=== PATIENT | male | born 1950 | race Caucasian/White ===

== ENCOUNTER 2017-03-31 12:08 | Inpatient (IN) | payer MEDICARE, BC ==
[~2017-03-31] VITALS: Ht 172.7 cm; Wt 85.9 kg
[2017-03-31 14:20] VITALS: BP 134/65
[2017-03-31] MEDS ORDERED: DEXTROSE 50% 25 GM / 50ML DISP.SYRIN. IV PRN (14:45)
[2017-03-31] MEDS ORDERED: ACETAMINOPHEN 325 MG TABLET. PO PRN (14:45)
[2017-03-31 15:08] LABS: BASO % 1 % (0-3); EOS % 4 % (0-3); HEMATOCRIT 40.7 % (39.0-53.0); HEMOGLOBIN 14.1 g/dL (13.0-17.5); LYMPH % 15 % (24-48); MEAN CORPUSCULAR HEMOGLOBIN 29 pg (25-35); MEAN CORPUSCULAR HGB CONC 35 g/dL (31-37); MEAN CORPUSCULAR VOLUME 85 fL (79-100); MONO % 9 % (0-9); NEUT % 72 % (31-73); PLATELET COUNT 174 x10^3/uL (140-400); RED BLOOD COUNT 4.78 x10^6/uL (4.30-5.70); RED CELL DISTRIBUTION WIDTH 13.6 % (11.5-14.5)
[2017-03-31 15:17] LABS: INR 1.1 (0.8-1.1); PROTHROMBIN TIME PATIENT 13.3 SEC (11.7-14.0)
[2017-03-31 15:23] LABS: ALBUMIN 3.3 g/dL (3.4-5.0); CALCIUM 8.7 mg/dL (8.5-10.1); CREATININE 0.7 mg/dL (0.7-1.3); GFR 112.1; POTASSIUM 3.5 mmol/L (3.5-5.1); TOTAL BILIRUBIN 0.5 mg/dL (0.2-1.0); TOTAL PROTEIN 6.5 g/dL (6.4-8.2)
[2017-03-31] MEDS: LISINOPRIL 20 MG TABLET PO SCH (15:30)
[2017-03-31] MEDS: ASPIRIN ENTERIC COATED 81 MG TABLET.DR. PO SCH (15:30)
[2017-03-31] MEDS: PANTOPRAZOLE 40 MG TABLET.DR. PO SCH (15:30)
[2017-03-31] MEDS: METOPROLOL SUCC 24HR ER 50 MG TAB.ER.24H. PO SCH (15:30)
[2017-03-31] MEDS: HYDROmorphone 2 MG/ML VIAL IV PRN ×2 (16:42→23:50)
[2017-03-31] MEDS: GLIMEPIRIDE 2 MG TABLET. PO SCH (17:00)
[2017-03-31] MEDS: INSULIN ASPART 300 UNITS/3 ML INSULN.PEN SQ SCH (17:00)
[2017-03-31 17:23] VITALS: BP 134/65
[2017-03-31 19:00] VITALS: BP 165/67
[2017-03-31] MEDS ORDERED: CANA300T PO (19:48)
[2017-03-31] MEDS: ATORVASTATIN CALCIUM 40 MG TABLET. PO SCH (20:39)
[2017-03-31] MEDS: TAMSULOSIN 0.4 MG CAP.ER.24H. PO SCH (20:39)
[2017-03-31] MEDS ORDERED: ONDANSETRON PF 4 MG/2 ML VIAL. IV PRN (20:45)
[2017-03-31] MEDS: INSULIN DETEMIR 300 UNITS/3 ML INSULN.PEN. SQ SCH (20:49)
[2017-03-31 23:00] VITALS: BP 154/76
[2017-04-01] MEDS: HYDROmorphone 2 MG/ML VIAL IV PRN ×3 (00:45→11:40)
[2017-04-01 03:00] VITALS: BP_SYST 159; BP_SYST 171; BP_DIAS 72; BP_DIAS 73
[2017-04-01 07:00] VITALS: BP 159/81
[2017-04-01] MEDS: GLIMEPIRIDE 2 MG TABLET. PO SCH ×2 (08:17→16:59)
[2017-04-01] MEDS: METOPROLOL SUCC 24HR ER 50 MG TAB.ER.24H. PO SCH (08:18)
[2017-04-01] MEDS: ASPIRIN ENTERIC COATED 81 MG TABLET.DR. PO SCH (08:18)
[2017-04-01] MEDS: NON FORMULARY ITEM (Canagliflozin (Invokana) 300 MG) PO SCH (08:18)
[2017-04-01] MEDS: LISINOPRIL 20 MG TABLET PO SCH (08:18)
[2017-04-01] MEDS: PANTOPRAZOLE 40 MG TABLET.DR. PO SCH (08:18)
[2017-04-01] MEDS: INSULIN ASPART 300 UNITS/3 ML INSULN.PEN SQ SCH ×3 (08:22→16:44)
--- NOTE | 2017-04-01 10:20 | HP ---
ADMIT DATE: 04/01/2017 HISTORY OF PRESENT ILLNESS: The patient is a 67-year-old male patient who was admitted to [facility] on 03/29/2017 with a complaint of severe left flank pain that is radiating to his left groin and left testicle. He denied any dysuria, denied any hematuria or frequency. He apparently has multiple episodes of nephrolithiasis and he described that his presentation is similar to previous attacks of renal stones. However, he has had multiple imaging modalities, none of them really showed any evidence of stones whether in the kidneys or in the ureters. There is no evidence of hydronephrosis. His urinalysis was unremarkable with no evidence of hematuria and ultrasound again showed no evidence of any hydronephrosis. I did speak with Dr. Mayda Molina, the urologist project production engineer at [facility], and she did not feel that there is any reason for him to be transferred. CT scan of the abdomen, however, showed that he has compression deformity at L2 that might have been the cause of this pain and therefore the patient was transferred to [facility] to arrange for an MRI of the lumbar spine to consult either interventional radiologist or neurosurgeon if there is any evidence of compression fracture or radiculopathy. PAST MEDICAL HISTORY: Significant for multiple episodes of nephrolithiasis, apparently has also type 2 diabetes, bronchial asthma, coronary artery disease status post percutaneous coronary intervention with stent deployment x 4, hyperlipidemia, hypertension, gastric ulcers, benign prostatic hypertrophy. PAST SURGICAL HISTORY: Significant for coronary artery disease, stent deployment. He has had also cystoscopy, retrograde pyelography and retrieval of stones, tonsillectomy, lipoma resection, esophagogastroduodenoscopy and colonoscopy. ALLERGIES: He has no known drug allergies. MEDICATIONS: He is currently on aspirin 81 mg once a day, atorvastatin 40 mg at bedtime, Invokana 300 mg once a day, glimepiride 4 mg twice a day. He is also on Lantus 30 units at bedtime, Victoza 1.8 mg subcutaneously daily, lisinopril 20 mg once a day, metformin 1000 mg twice a day, metoprolol succinate 50 mg once a day and omeprazole 40 mg once a day. He was also transferred to continue on IV hydromorphone 2 mg IV every 3 hours as well as ondansetron 4 mg IV every 4 hours for nausea and vomiting, and Flomax 0.4 mg at bedtime. FAMILY HISTORY: He has 2 brothers who are younger. One sister older has type 2 diabetes. His father at age of 83 because of bronchial asthma, chronic obstructive pulmonary disease and cancer. Mother at the age of 94 because of cerebrovascular accident. SOCIAL HISTORY: He is , has a son and a daughter. He never smoked, does not drink alcohol or use recreational drugs. 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 REVIEW OF SYSTEMS: The patient denied any blurring of vision, cataract, glaucoma or macular degeneration. Denied any earache, tinnitus or sensorineural deafness. Denied any nosebleeds, stuffy nose or postnasal drip. Denied any sore throat, sore tongue, toothache, hoarseness of voice or difficulty swallowing. Denied any nausea, vomiting, diarrhea or constipation. Denied any hematemesis, melena or hematochezia. Denied any dysuria, frequency or hematuria. He did complain of nocturia, postvoid dribbling, hesitancy and urgency as well as nocturia. He denied any chest pain, shortness of breath, orthopnea or paroxysmal nocturnal dyspnea. Denied any cough, phlegm or hemoptysis. The only complaint is pain that started in left flank area, radiating down to the left groin and particularly his left testicle. PHYSICAL EXAMINATION: GENERAL: On examining him this morning, he looked well and was clearly in no apparent respiratory distress, pale. No jaundice, cyanosis, or thyromegaly. No jugular venous distention. No limb edema. VITAL SIGNS: His heart rate was 73, blood pressure was 159/81, temperature was 98.4, respiratory rate was 18 and oxygen saturation was 95%. HEAD, EYES, EARS, NOSE, THROAT: Showed normocephalic, atraumatic. NECK: Supple. HEART: Showed normal first and second heart sounds with no gallop, rub or murmur. CHEST: Clear to auscultation. No crepitation or rhonchi. ABDOMEN: Distended, soft, nontender. No guarding or rigidity. No organomegaly. All hernial orifices intact. Bowel sounds normal. NEUROLOGIC: He was awake, alert, responding appropriately. Cranial nerves intact. He moves extremities without difficulty. LABORATORY DATA: Showed that his white cell count was 7000, hemoglobin 14, hematocrit 41, MCV 85, and platelet count of 174,000. His prothrombin time was 15.3, INR of 1.1, aPTT was 23. His chemistry showed a serum sodium 141, potassium 3.5, chloride 103, bicarbonate 28, anion gap of 10, BUN 14, creatinine 0.7, estimated GFR was 112 mL per minute. His glucose was 122, calcium was 8.7. Total bilirubin, AST, ALT, alkaline phosphatase were normal. Total protein was 6.5, albumin 3.3. ASSESSMENT AND PLAN: In summary, this is a 67-year-old male patient with intractable low back pain, mostly in the flank area radiating to the left groin and left testicle. The CT scan of the abdomen and pelvis without contrast showed no renal or ureteral calculi; however, there is subacute or chronic mild severe plate compression deformity at L2 that could be the cause of his pain. He has moderate right and small left inguinal hernia containing only fat. Again, the abdominal ultrasound showed no evidence of hydronephrosis and CT angio showed no acute abnormalities seen. All intra-abdominal arteries are patent. The patient is scheduled for an MRI and then according to the finding we will consult either the interventional radiologist or neurosurgical team if he requires any surgical intervention. FIDENCIO BLANCAS MD DR: PIETER/shaka JOB#: [id number] / [id number]
[2017-04-01 11:38] VITALS: BP 145/76
--- NOTE | 2017-04-01 13:24 | RAD ---
EXAM: Lumbar spine MRI without contrast. HISTORY: Pain. TECHNIQUE: Multiplanar, multisequence magnetic resonance imaging of the lumbar spine was performed without contrast. COMPARISON: None. FINDINGS: There is minimal lumbar scoliosis. There is no significant listhesis. There is a mild chronic anterior wedge compression fracture of L2. The remainder of the vertebral bodies are normal in height. There is endplate remodeling at multiple levels. There is disc desiccation at multiple levels. The conus terminates at L1. There are few tiny hemangiomas. There are small bilateral renal cysts. At T10-T11, there is a right foraminal disc protrusion. There is no stenosis. At T11-T12, there is no stenosis. At T12-L1, there is a shallow inferior disc extrusion superimposed on a disc bulge and endplate remodeling. There is no stenosis. At L1-L2, there is a shallow posterior central to right foraminal disc protrusion and annular tear superimposed on a disc bulge and endplate remodeling. There is no stenosis. At L2-L3, there is a disc bulge and endplate remodeling. There is no stenosis. At L3-L4, there is a disc bulge and endplate remodeling. There is no stenosis. At L4-L5, there is a shallow broad-based posterior central disc protrusion and annular tear superimposed on a disc bulge and endplate remodeling. There is mild facet arthropathy. There is mild central canal stenosis with abutment of the traversing left L5 nerve root. At L5-S1, there is a posterior central disc protrusion and annular tear superimposed on a disc bulge and endplate remodeling. There is mild facet arthropathy. There is minimal left foraminal stenosis. There is mild central canal stenosis. IMPRESSION: 1. Multilevel degenerative change within the lower thoracic and lumbar spine, described in detail above. 2. Mild chronic wedge compression deformity of L2. Electronically signed by: Elana Strange MD (04/01/2017 1:21 PM) [facility]
[2017-04-01 15:00] VITALS: BP 162/77
[2017-04-01 19:00] VITALS: BP 150/66
[2017-04-01] MEDS: ATORVASTATIN CALCIUM 40 MG TABLET. PO SCH (21:53)
[2017-04-01] MEDS: TAMSULOSIN 0.4 MG CAP.ER.24H. PO SCH (21:53)
[2017-04-01] MEDS: INSULIN DETEMIR 300 UNITS/3 ML INSULN.PEN. SQ SCH (21:58)
[2017-04-01 23:07] VITALS: BP 134/64
[2017-04-02 03:27] VITALS: BP 116/67
[2017-04-02 07:00] VITALS: BP 91/48
[2017-04-02] MEDS: INSULIN ASPART 300 UNITS/3 ML INSULN.PEN SQ SCH ×2 (08:00→11:46)
[2017-04-02] MEDS: LISINOPRIL 20 MG TABLET PO SCH (08:23)
[2017-04-02] MEDS: METOPROLOL SUCC 24HR ER 50 MG TAB.ER.24H. PO SCH (08:24)
[2017-04-02] MEDS: PANTOPRAZOLE 40 MG TABLET.DR. PO SCH (08:28)
[2017-04-02] MEDS: ASPIRIN ENTERIC COATED 81 MG TABLET.DR. PO SCH (08:29)
[2017-04-02] MEDS: NON FORMULARY ITEM (Canagliflozin (Invokana) 300 MG) PO SCH (08:29)
[2017-04-02] MEDS: GLIMEPIRIDE 2 MG TABLET. PO SCH (08:29)
[2017-04-02] MEDS ORDERED: INSU100V13 SQ (11:20)
[2017-04-02] MEDS ORDERED: GLIM4TAB2 PO (11:20)
[2017-04-02] MEDS ORDERED: ATOR40TA PO (11:20)
[2017-04-02] MEDS ORDERED: ASPI-612 PO (11:20)
[2017-04-02] MEDS ORDERED: TAMS0.4C97 PO (11:20)
[2017-04-02] MEDS ORDERED: METO-269 PO (11:20)
[2017-04-02] MEDS ORDERED: LISI-334 PO (11:20)
[2017-04-02 11:37] VITALS: BP 103/56
--- NOTE | 2017-04-02 12:44 | PDOC ---
Provider Note Provider Note patient seen reports that the severe left groin pain has resolved he reported severe left groin pain that felt similar to when he previously had nephrolithiasis but denies having left leg pain L2 compression fx appears chronic left sided lateral recess narrowing at L4-5 but no radicular signs or symptoms at this time F/u urology F/u with me as OP as needed CRISTO ZHAO MD Apr 02, 2017 12:44
--- NOTE | 2017-04-12 12:43 | DS ---
DATE OF DISCHARGE: 04/02/2017 HOSPITAL COURSE: The patient is a 67-year-old male patient who was originally seen at [facility] with a complaint of severe left flank pain that he stated is radiating to his left groin and left testicle. He denied, however, any dysuria, denied any hematuria or frequency. He apparently has multiple episodes of nephrolithiasis, described that his presentation is similar to previous attacks of renal stones; however, he has multiple imaging modalities, none of them really showed any evidence of stones, whether in the kidneys or in the ureters. There is no evidence of hydronephrosis. Urinalysis was unremarkable with no evidence of any hematuria, and ultrasound again showed no evidence of any hydronephrosis. I did speak with Dr. Carlene Barajas, the urologist vice president of contracts at [facility]. He did not feel that there is any reason for him to be transferred. CT scan of the abdomen, however, showed that he has compression deformity at L2 that might have been the cause of his disk pain, and therefore, the patient was transferred to [facility]. An MRI was done of his lumbar spine and to consult the neurosurgical team. His MRI apparently showed that he has an old L2 compression fracture. The patient was treated with IV hydromorphone, and all of a sudden, his pain has completely subsided. He was seen by Dr. Chahal who basically did not recommend any intervention and recommended that the patient should follow with him as an outpatient as he has left-sided lateral recess narrowing at L4-L5, but no radicular signs or symptoms at this time. He recommended that he should see him as an outpatient in his office. As the patient's pain has completely resolved, the patient was discharged home, to follow with his primary care physician. PHYSICAL EXAMINATION: GENERAL: On the day of discharge, he looked well and was clearly in no apparent respiratory distress, pale, but no jaundice, cyanosis, or thyromegaly. No jugular venous distention. No limb edema. VITAL SIGNS: His heart rate was 77, blood pressure was 103/56, temperature was 97, respiratory rate was 20 and oxygen saturation was 94%. The rest of clinical examination is unremarkable. The patient was pain free. He was ambulating without assistance or assistive devices. LABORATORY DATA: Unremarkable. DISCHARGE MEDICATIONS: The patient was discharged home, to continue on his aspirin 81 mg once a day, atorvastatin calcium 40 mg at bedtime, glimepiride 4 mg twice a day, Levemir insulin 30 units at bedtime, lisinopril 20 mg once a day, metoprolol succinate for Toprol-XL 50 mg once a day, Flomax 0.4 mg at bedtime as well as Invokana 300 mg daily. FINAL DISCHARGE DIAGNOSES: Left flank pain, severe, that has finally subsided spontaneously without any intervention. There was no evidence of any nephrolithiasis, and the L2 compression fracture was chronic. Other medical problems included type 2 diabetes, multiple episodes of nephrolithiasis, bronchial asthma, coronary artery disease, status post percutaneous coronary intervention with stent deployment x 4, hyperlipidemia, hypertension, gastric ulcers and benign prostatic hypertrophy. FIDENCIO BLANCAS MD DR: PIETER/shaka JOB#: [id number] / [id number]
== END 2017-04-02 14:00 | disposition home or self-care (01) | DRG 392 ==
LOC: 4 NORTH 14:15
PROVIDERS: ADMIT Internal Medicine; ATTEND Internal Medicine
DX: R10.9 Unspecified abdominal pain (principal); E44.0 Moderate protein-calorie malnutrition; M48.56XA Collapsed vertebra, not elsewhere classified, lumbar region, initial encounter for fracture; E11.9 Type 2 diabetes mellitus without complications; E78.5 Hyperlipidemia, unspecified; I10 Essential (primary) hypertension; I25.10 Atherosclerotic heart disease of native coronary artery without angina pectoris; K40.90 Unilateral inguinal hernia, without obstruction or gangrene, not specified as recurrent; J45.909 Unspecified asthma, uncomplicated; N20.0 Calculus of kidney; Z82.3 Family history of stroke; Z82.5 Family history of asthma and other chronic lower respiratory diseases; Z83.3 Family history of diabetes mellitus; Z87.11 Personal history of peptic ulcer disease; Z87.442 Personal history of urinary calculi; Z98.61 Coronary angioplasty status; Z85.46 Personal history of malignant neoplasm of prostate
CPT/HCPCS: 36415; 72148; 80053; 82962; 85025; 85610; 85730; J1170; J1815

== ENCOUNTER 2021-09-29 13:25 | Inpatient (IN) | payer MEDICARE, BC ==
[~2021-09-29] VITALS: Ht 170.2 cm; Wt 87.6 kg
[2021-09-29] VITALS (17 sets, daily range): BP systolic 85–149; BP diastolic 41–78
[~2021-09-29 13:25] MED LIST: ASPI-886 PO; ATOR40TA PO; CANA300T PO; GLIM4TAB8 PO; INSU100V13 SQ; LISI20TA18 PO; METO-269 PO; MIDAZOLAM HCL/PF 2 MG/2 ML VIAL. ONE; TAMS0.4C97 PO; fentaNYL PF VIAL 100 MCG/2 ML VIAL ONE
[2021-09-29] MEDS ORDERED: BIVALIRUDIN 250 MG VIAL. IVP ONE (13:33)
[2021-09-29] MEDS ORDERED: MIDAZOLAM HCL/PF 2 MG/2 ML VIAL. ONE (13:35)
[2021-09-29] MEDS ORDERED: IOHEXOL 300 MG/ML 50 ML VIAL. IART ONE (13:45)
[2021-09-29] MEDS ORDERED: fentaNYL PF VIAL 100 MCG/2 ML VIAL IV ONE (13:45)
[2021-09-29] MEDS ORDERED: LIDOCAINE 1% Multi-Dose 20 ML VIAL. INJ ONE (13:45)
[2021-09-29] MEDS ORDERED: MIDAZOLAM HCL/PF 2 MG/2 ML VIAL. IV ONE (13:45)
[2021-09-29] MEDS ORDERED: CONTRAST GIVEN. MC PRN (14:00)
[2021-09-29] MEDS ORDERED: IOHEXOL 300 MG/ML 50 ML VIAL. ONE (14:08)
--- NOTE | 2021-09-29 14:11 | PDOC ---
MODERATE SEDATION ASSESSMENT RISKS/ALTERNATIVES Risks/Alternatives Risks and alternatives of this type of sedation and procedure discussed with: RISK/ALTERNATIVES: Patient H & P ON CHART H & P H & P on chart and reviewed for co-morbid conditions and appropriate labs. H&P ON CHART: Yes STATUS PREG STATUS ASSESSED: N/A MEDS/ALLERGIES REVIEWED Meds/Allergies Reviewed Medications and Allergies including time and route of recently administered narcotics and sedatives. MEDS/ALLERGIES REVIEWED: Yes ASA RATING ASA RATING: II AIRWAY ASSESSMENT Airway Assessment Airway patency, oral function limitations, presence of caps, crowns, dentures, partials, and ability to extend neck assessed. AIRWAY ASSESSMENT: Yes MALLAMPATI SCORE MALLAMPATI SCORE: II PRE-SEDATION ASSESSMENT PRE-SEDATION ASSESSMENT: Yes SUNITA FRANCO MD September 29, 2021 14:11
--- NOTE | 2021-09-29 14:12 | PDOC2 ---
CONSULT Date of Consult Date of Consult DATE: 09/29/21 TIME: 14:11 Reason for Consult Reason for Consult: Acute coronary syndrome Referring Physician Referring Physician: Dr. Chowdary Identification/Chief Complaint Chief Complaint Dizziness Source Source: Chart review, Patient History of Present Illness Reason for Visit: 71-year-old male with extensive history of coronary artery disease s/p multiple PCI/stents placement, usually followed at [facility], initially presented to [facility] ED with dizziness, lightheadedness, blurred vision, diaphoresis and generalized weakness. His blood pressure apparently was 50s/30s when checked by his . He was found to be hypotensive in the ED as well. EKG showed subtle ST elevations in inferior leads, early repolarization abnormality versus acute coronary syndrome and hence code STEMI was activated and patient was transferred to [facility] for further management. He denied any chest pain as such. He also denied any orthopnea/PND, palpitations or syncope. He claims compliance with his medications. Past Medical History Past Medical History Coronary artery disease s/p multiple PCI/stents placement in 2010, 2017 and most recently in April 2021 at [facility]. Hypertension Hyperlipidemia Diabetes mellitus type 2 GERD Nephrolithiasis Past Surgical History Past Surgical History Lipoma removal Family History Family History Not contributory secondary to his known history of coronary artery disease Social History Social History Patient denied any smoking, alcohol or drug use Current Medications Current Medications Current Medications Fentanyl Citrate (Fentanyl 2ml Vial) 100 mcg STK-MED ONCE .ROUTE ; Start 09/29/21 at 13:13; Stop 09/29/21 at 13:14; Status DC Midazolam HCl (Versed) 2 mg STK-MED ONCE .ROUTE ; Start 09/29/21 at 13:13; Stop 09/29/21 at 13:14; Status DC Bivalirudin (Angiomax) 250 mg STK-MED ONCE IVP ; Start 09/29/21 at 13:33; Stop 09/29/21 at 13:33; Status DC Midazolam HCl (Versed) 2 mg STK-MED ONCE .ROUTE ; Start 09/29/21 at 13:35; Stop 09/29/21 at 13:35; Status DC Heparin Sodium/ Sodium Chloride (HEPARIN for ARTERIAL LINE FLUSH) 1,000 unit 1X ONCE IART Last administered on 09/29/21at 13:45; Start 09/29/21 at 13:45; Stop 09/29/21 at 13:49; Status DC Midazolam HCl (Versed) 2 mg 1X ONCE IV Last administered on 09/29/21at 13:29; Start 09/29/21 at 13:45; Stop 09/29/21 at 13:49; Status DC Fentanyl Citrate (Fentanyl 2ml Vial) 50 mcg 1X ONCE IV Last administered on 09/29/21at 13:29; Start 09/29/21 at 13:45; Stop 09/29/21 at 13:49; Status DC Iohexol (Omnipaque 300 Mg/ml) 50 ml 1X ONCE IART Last administered on 09/29/21at 13:45; Start 09/29/21 at 13:45; Stop 09/29/21 at 13:49; Status DC Lidocaine HCl (Lidocaine 1% 20ml Vial) 20 ml 1X ONCE INJ Last administered on 09/29/21at 13:45; Start 09/29/21 at 13:45; Stop 09/29/21 at 13:49; Status DC Info (CONTRAST GIVEN -- Rx MONITORING) 1 each PRN DAILY PRN MC SEE COMMENTS; Start 09/29/21 at 14:00; Stop 10/01/21 at 13:59 Heparin Sodium/ Sodium Chloride 500 ml @ As Directed STK-MED ONCE .ROUTE ; Start 09/29/21 at 14:08; Stop 09/29/21 at 14:08; Status DC Iohexol (Omnipaque 300 Mg/ml) 50 ml STK-MED ONCE .ROUTE ; Start 09/29/21 at 14:08; Stop 09/29/21 at 14:08; Status DC Active Scripts Active Flomax (Tamsulosin Hcl) 0.4 Mg Cap.er.24h 1 Cap PO DAILY Toprol Xl (Metoprolol Succinate) 50 Mg Tab.er.24h 1 Tab PO DAILY Lisinopril 20 Mg Tablet 1 Tab PO DAILY Levemir (Insulin Detemir) 100 Unit/1 Ml Vial 30 Unit SQ QHS PRN Glimepiride 4 Mg Tablet 1 Tab PO BID Lipitor (Atorvastatin Calcium) 40 Mg Tablet 1 Tab PO QHS Aspirin Ec (Aspirin) 81 Mg Tablet. 1 Tab PO DAILY Reported Invokana (Canagliflozin) 300 Mg Tablet 300 Mg PO DAILY Allergies Allergies: Coded Allergies: No Known Drug Allergies (Unverified , 03/31/17) ROS General: YES: Fatigue, Malaise PSYCHOLOGICAL ROS: No: Hallucinations Eyes: No Loss of vision HEENT: No: Epistaxis Respiratory: No: Hemoptysis Cardiovascular: No Chest Pain Gastrointestinal: No Vomiting, No Diarrhea Genitourinary: No Hematuria Neurological: Yes Dizziness, Yes Visual Changes; No Seizures Skin: No Rash Physical Exam General: Alert, Oriented X3 HEENT: Atraumatic Lungs: Clear to auscultation Heart: Regular rate Abdomen: Soft Extremities: No edema Neuro: Normal speech Psych/Mental Status: Mental status NL Vitals VITALS Vital Signs Date Time Temp Pulse Resp B/P (MAP) Pulse Ox O2 Delivery O2 Flow Rate FiO2 09/29/21 13:58 58 17 96 Nasal Cannula 3.0 Assessment/Plan Assessment/Plan 1. Possible acute coronary syndrome in a patient with extensive history of coronary artery disease with multiple stents placement in the past, most recently in April 2021. Due to his EKG changes, we proceeded with emergent cardiac catheterization that did not show any lesions needing intervention. The previously placed stents in LAD and LCx were widely patent. The diagonal branch showed chronic total occlusion within the stent, described in prior cardiac cath eterization according to his family. He is currently chest pain-free. Check 2D echo to assess LV systolic function. We will obtain records from [facility]. Continue current secondary prevention measures. 2. Hypotension: Probably secondary to hypovolemia. This improved after he received intravenous fluid boluses in the ED. He is presently off dopamine infusion that was started on his arrival. Defer further work-up to IM. 3. Hyperlipidemia: Continue statin therapy. 4. Diabetes mellitus type 2 with hyperglycemia, probably contributing to his hypovolemia. Treat per IM. 5. Acute renal insufficiency secondary to hypovolemia. Continue intravenous fluids. Thank you for your consultation. Total critical care time spent evaluating and managing patient 45 minutes. SUNITA FRANCO MD September 29, 2021 14:11
--- NOTE | 2021-09-29 14:21 | CARD ---
MR#: [id number] Date of Study: 09/29/2021 Ordering Physician: SUNITA DURAN, Referring Physician: SUNITA DURAN, Tech: RT Mary(R) APPROVED REPORT Technologist: RT Mary(R) Nurse: Víctor Nelson RN Procedure(s) performed: Left heart catheterization and selective coronary angiography Fluoro time: 2.7 min Dose: 54.6 gycm2 contrast: 42 cc omni 300 moderate sedation: 29 minutes INDICATION The indication(s) include : Unstable angina. [facility] Clinical Frailty Scale [facility] Clinical Frailty Scale: Mildly Frail Heart Failure Heart Failure: No CASE TECHNIQUE IV conscious sedation was used throughout procedure with appropriate monitoring and was performed in the presence of a registered nurse who was an independent trained observer other than the physician p erforming the procedure. During this case, Fluoroscopy and low osmolar contrast were used for imaging . Specimen(s) Removed: No Estimated Blood loss: 15 cc's. PROCEDURE NARRATIVE After explaining the risk, benefits and alternative options, informed consent was obtained for patien t. Patient was brought to the cardiac Machine [facility] and his right groin was prepped and draped in the usu al fashion. 20 cc of 2% lidocaine was infiltrated into the skin and subcutaneous tissues for local a nesthesia. Arterial access was obtained in the right common femoral artery and a 6 Wolof sheath was inserted. 6 Wolof JL 4 and 6 Wolof JR4 catheters were used to perform selective angiography of th e left and right coronary arteries. LVEDP and transaortic gradients were measured. Patient tolerate d the procedure well. Hemostasis was achieved using Mynx closure device. There were no immediate co mplications. FINDINGS 1. Hemodynamics: Left ventricular end-diastolic pressure 18 mmHg. No pullback gradient across aorti c valve. 2. Coronary angiography: a. The left main coronary artery arose from the left sinus of Valsalva, gave rise to the left anteri or descending and left circumflex arteries and did not show any significant stenosis. b. The left anterior descending artery showed widely patent previously placed stents in the midsegme nt and also the mid to distal segment. The first diagonal branch showed chronic total occlusion with in the stent in the proximal segment. Per patient's family, this was noted on last cardiac catheteri zation. c. The left circumflex artery showed widely patent previously placed stent in the proximal to mid se gment. The first obtuse marginal branch showed patent stent in the proximal segment. d. The right coronary artery arose from the right sinus of Valsalva and did not show any significant stenosis. Conclusion Patent previously placed stents in left anterior descending artery, left circumflex artery and the fi rst obtuse marginal branch. The diagonal branch of LAD showed chronic total occlusion within the aust[place] nt in the proximal segment, described in prior cardiac catheterization. No lesions needing intervent ion were noted. Recommendations Medical Therapy Signed by : Sunita Duran, Electronically Approved : 09/29/2021 14:20:28
--- NOTE | 2021-09-29 15:39 | PDOC1 ---
History and Physical Date of Admission Date of Admission DATE: 09/29/21 TIME: 15:21 Identification/Chief Complaint Chief Complaint Pre-syncope, low blood pressure, abnormal EKG Source Source: Patient History of Present Illness History of Present Illness Mr Bowling is a 71 yo male w/ PMHx coronary artery disease s/p multiple PCI/stents placement (he says 4 stents 2010 and 4 stents 2018), DM2, HLD, HTN, carotid disease s/p bilateral carotid endarterectomy who presented to [facility] ED with dizziness, lightheadedness, blurred vision, diaphoresis and generalized weakness. Blood pressure 65/24 pulse 67 respirations 16 pulse oximetry 96% on room air temperature 98 F Labs reveal WBC 6.2, Hb 12.8, platelets 184, INR 1, PTT 21, NA 138, K5, BUN 32, CR 1.6, glucose 251, calcium 9, phosphorus 3.2, magnesium 1.1 bilirubin 0.7, AST 23, ALT 24, alkaline phosphatase 74.5, NT proBNP 423, troponin high-sensitivity is [address] head abnormalities. Chest radiograph no acute abnormalities EKG with slight ST elevations in inferior leads with T wave inversion in aVL. Given IVF bolus and started on dopamine and with concern for early STEMI was transferred to [facility] for urgent cardiac evaluation and catheterization. In [place] found with patent previously placed stents in left anterior descending artery, left circumflex artery and the first obtuse marginal branch. The diagonal branch of LAD showed chronic total occlusion within the stent. No interventions performed. Seen in ICU post cardiac cath and he tells me this morning awoke with a slight headache. He says he went to [place] for cardiac rehab and came outside When he went outside he noticed everything was very bright and blurry. Patient states he felt unwell while driving, went to have breakfast but did not get any better and his checked his blood pressure and found it to be 50/30, so came to ED in the first place. He then relates above prior cardiac history and notes April 2021 while being evaluated for consideration for recommended CABG he was found with 90 occlusion of his right carotid artery and >70% occlusion of left with prior TIA and subsequently underwent bilateral carotid endarterectomies, he has been going to cardiac rehab since and notes that he frequently gets lightheaded after rehab and has light sensitivity. Still hypotensive 85/41 with HR 57bpm in ICU. Past Medical History Cardiovascular: CAD, CHF, HTN, Hyperlipidemia CENTRAL NERVOUS SYSTEM: TIA Renal/: Benign prostatic enlarg. Endocrine: Diabetes Past Surgical History Past Surgical History 2020 - bilateral carotid endarterectomy Family History Family History: Coronary Artery Disease Social History Smoke: No ALCOHOL: none Drugs: None Current Medications Current Medications Current Medications Fentanyl Citrate (Fentanyl 2ml Vial) 100 mcg STK-MED ONCE .ROUTE ; Start 09/29/21 at 13:13; Stop 09/29/21 at 13:14; Status DC Midazolam HCl (Versed) 2 mg STK-MED ONCE .ROUTE ; Start 09/29/21 at 13:13; Stop 09/29/21 at 13:14; Status DC Bivalirudin (Angiomax) 250 mg STK-MED ONCE IVP ; Start 09/29/21 at 13:33; Stop 09/29/21 at 13:33; Status DC Midazolam HCl (Versed) 2 mg STK-MED ONCE .ROUTE ; Start 09/29/21 at 13:35; Stop 09/29/21 at 13:35; Status DC Heparin Sodium/ Sodium Chloride (HEPARIN for ARTERIAL LINE FLUSH) 1,000 unit 1X ONCE IART Last administered on 09/29/21at 13:45; Start 09/29/21 at 13:45; Stop 09/29/21 at 13:49; Status DC Midazolam HCl (Versed) 2 mg 1X ONCE IV Last administered on 09/29/21at 13:29; Start 09/29/21 at 13:45; Stop 09/29/21 at 13:49; Status DC Fentanyl Citrate (Fentanyl 2ml Vial) 50 mcg 1X ONCE IV Last administered on 09/29/21at 13:29; Start 09/29/21 at 13:45; Stop 09/29/21 at 13:49; Status DC Iohexol (Omnipaque 300 Mg/ml) 50 ml 1X ONCE IART Last administered on 09/29/21at 13:45; Start 09/29/21 at 13:45; Stop 09/29/21 at 13:49; Status DC Lidocaine HCl (Lidocaine 1% 20ml Vial) 20 ml 1X ONCE INJ Last administered on 09/29/21at 13:45; Start 09/29/21 at 13:45; Stop 09/29/21 at 13:49; Status DC Info (CONTRAST GIVEN -- Rx MONITORING) 1 each PRN DAILY PRN MC SEE COMMENTS; Start 09/29/21 at 14:00; Stop 10/01/21 at 13:59 Heparin Sodium/ Sodium Chloride 500 ml @ As Directed STK-MED ONCE .ROUTE ; Start 09/29/21 at 14:08; Stop 09/29/21 at 14:08; Status DC Iohexol (Omnipaque 300 Mg/ml) 50 ml STK-MED ONCE .ROUTE ; Start 09/29/21 at 14:08; Stop 09/29/21 at 14:08; Status DC Sodium Chloride 1,000 ml @ 60 mls/hr [id number] IV ; Start 09/29/21 at 15:00 Active Scripts Active Flomax (Tamsulosin Hcl) 0.4 Mg Cap.er.24h 1 Cap PO DAILY Toprol Xl (Metoprolol Succinate) 50 Mg Tab.er.24h 1 Tab PO DAILY Lisinopril 20 Mg Tablet 1 Tab PO DAILY Levemir (Insulin Detemir) 100 Unit/1 Ml Vial 30 Unit SQ QHS PRN Glimepiride 4 Mg Tablet 1 Tab PO BID Lipitor (Atorvastatin Calcium) 40 Mg Tablet 1 Tab PO QHS Aspirin Ec (Aspirin) 81 Mg Tablet.dr 1 Tab PO DAILY Reported Invokana (Canagliflozin) 300 Mg Tablet 300 Mg PO DAILY Allergies Allergies: Coded Allergies: No Known Drug Allergies (Unverified , 03/31/17) ROS General: YES: Fatigue, Malaise; No: Chills, Night Sweats, Appetite, Other PSYCHOLOGICAL ROS: No: Anxiety, Behavioral Disorder, Concentration difficultie, Decreased libido, Depression, Disorientation, Hallucinations, Hostility, Irr itablity, Memory difficulties, Mood Swings, Obsessive thoughts, Physical abuse, Sexual abuse, Sleep disturbances, Suicidal ideation, Other Eyes: Yes Blurry vision, Yes Photophobia; No Decreased vision, No Double vision, No Dry eyes, No Excessive tearing, No Eye Pain, No Itchy Eyes, No Loss of vision, No Scotomata, No Uses contacts, No Uses glasses, No Other HEENT: YES: Heacaches; No: Visual Changes, Hearing change, Nasal congestion, Nasal discharge, Oral lesions, Sinus pain, Sore Throat, Epistaxis, Sneezing, Snoring, Tinnitus, Vertigo, Vocal changes, Other ALLERGY AND IMMUNOLOGY: No: Hives, Insect Bite Sensitivity, Itchy/Watery Eyes, Nasal Congestion, Post Nasal Drip, Seasonal Allergies, Other Hematological and Lymphatic: No: Bleeding Problems, Blood Clots, Blood Transfusions, Brusing, Night Sweats, Pallor, Swollen Lymph Nodes, Other ENDOCRINE: No: Breast Changes, Galactorrhea, Hair Pattern Changes, Hot Flashes, Malaise/lethargy, Mood Swings, Palpitations, Polydipsia/polyuria, Skin Changes, Temperature Intolerance, Unexpected Weight Changes, Other Breast: No New/Changing Breast Lumps, No Nipple changes, No Nipple discharge, No Other Respiratory: No: Cough, Hemoptysis, Orthopnea, Pleuritic Pain, Shortness of breath, SOB with excertion, Sputum Changes, Stridor, Tachypnea, Wheezing, Other Cardiovascular: No Chest Pain, No Palpitations, No Orthopnea, No Paroxysmal Noc. Dyspnea, No Edema, No Lt Headedness, No Other Gastrointestinal: No Nausea, No Vomiting, No Abdominal Pain, No Diarrhea, No Constipation, No Melena, No Hematochezia, No Other Genitourinary: No Dysuria, No Frequency, No Incontinence, No Hematuria, No Retention, No Discharge, No Urgency, No Pain, No Flank Pain, No Other, No , No , No , No , No , No , No Musculoskeletal: No Gait Disturbance, No Joint Pain, No Joint Stiffness, No Joint Swelling, No Muscle Pain, No Muscular Weakness, No Pain In:, No Swelling In:, No Other Neurological: No Behavorial Changes, No Bowel/Bladder ControlChng, No Confusion, No Dizziness, No Gait Disturbance, No Headaches, No Impaired Coord/balance, No Memory Loss, No Numbness/Tingling, No Seizures, No Speech Problems, No Tremors, No Visual Changes, No Weakness, No Other Skin: No Dry Skin, No Eczema, No Hair Changes, No Lumps, No Mole Changes, No Mottling, No Nail Changes, No Pruritus, No Rash, No Skin Lesion Changes, No Other, No Acne Physical Exam General: Alert, Oriented X3, Cooperative, mild distress HEENT: Atraumatic, PERRLA, EOMI, Mucous membr. moist/pink Lungs: Clear to auscultation, Normal air movement Heart: S1S2, RRR, no thrills, no rubs, no gallops, no murmurs Abdomen: Normal bowel sounds, Soft, No tenderness, No hepatosplenomegaly, No masses Rectal Exam: not examined Extremities: No clubbing, No cyanosis, No edema, Normal pulses, No tenderness/swelling Skin: No rashes, No breakdown, No significant lesion Neuro: Normal gait, Normal speech, Strength at 5/5 X4 ext, Normal tone, Sensation intact, Cranial nerves 3-12 NL, Reflexes 2+ Psych/Mental Status: Mental status NL, Mood NL Vitals Vitals Vital Signs Date Time Temp Pulse Resp B/P (MAP) Pulse Ox O2 Delivery O2 Flow Rate FiO2 09/29/21 14:30 66 18 114/53 (73) 97 Room Air 09/29/21 14:30 3.0 09/29/21 14:15 97.6 97.6 Images Images XR CHEST 1V History: Reason: hypotension / Spl. Instructions: / History: Comparison: July 18, 2019 Findings: No consolidation or pleural effusion. Normal heart size. No pneumothorax. Impression: 1. No acute cardiopulmonary process. VTE Prophylaxis Ordered VTE Prophylaxis Devices: No VTE Pharmacological Prophylaxi: Yes Assessment/Plan Assessment/Plan Hypotension - possibly medication overdosing, hold metoprol, cut down from 50 to 12.5 if HR allows in 24 hours Bradycardia - hold toprol for today Abnormal EKG - with above symptoms, treated as STEMI - no amenable coronary lesions Coronary artery disease s/p multiple PCI/stents placement in 2010, 2017 and most recently in April 2021 at [employer] [facility]. Carotid artery disease s/p bilateral carotid endarterectomies Blurred vision - likely related to hypotension H/o Hypertension - hold meds Hyperlipidemia - statin Diabetes mellitus type 2 -Jardiance, Lantus and lispro. GERD - ppi Nephrolithiasis BPH - on flomax FEN - ADA diet PPX - heparin FULL CODE DIspo - ICU cc time 37 min Justifications for Admission Other Justification ABAD HAMMER MD September 29, 2021 15:39
[2021-09-29] MEDS ORDERED: DEXTROSE 50% 25 GM / 50ML DISP.SYRIN. IV PRN (15:45)
[2021-09-29] MEDS: INSULIN LISPRO 300 UNITS/3 ML VIAL. SQ SCH ×2 (17:35→20:44)
[2021-09-29] MEDS: IV 1/2 NORMAL SALINE 1,000 ML IV SCH (17:36)
[2021-09-29] MEDS ORDERED: INSULIN GLARGINE SYRINGE. SQ SCH (23:00)
[2021-09-30 03:06] VITALS: BP 115/51
[2021-09-30 05:05] LABS: BASO % 1 % (0-3); EOS # 0.3 x10^3/uL (0.0-0.7); EOS % 7 % (0-3); HEMATOCRIT 37.4 % (39.0-53.0); HEMOGLOBIN 12.7 g/dL (13.0-17.5); LYMPH % 20 % (24-48); MEAN CORPUSCULAR HEMOGLOBIN 30 pg (25-35); MEAN CORPUSCULAR HGB CONC 34 g/dL (31-37); MEAN CORPUSCULAR VOLUME 87 fL (79-100); MONO # 0.4 x10^3/uL (0.0-1.1); MONO % 10 % (0-9); NEUT % 63 % (31-73); PLATELET COUNT 156 x10^3/uL (140-400); RED BLOOD COUNT 4.27 x10^6/uL (4.30-5.70); RED CELL DISTRIBUTION WIDTH 14.5 % (11.5-14.5); WHITE BLOOD COUNT 4.7 x10^3/uL (4.0-11.0)
[2021-09-30 05:50] LABS: ALBUMIN/GLOBULIN RATIO 0.9 (1.0-1.7); CALCIUM 8.2 mg/dL (8.5-10.1); CREATININE 0.9 mg/dL (0.7-1.3); GFR 82.9; POTASSIUM 4.7 mmol/L (3.5-5.1); TOTAL BILIRUBIN 0.5 mg/dL (0.2-1.0); TOTAL PROTEIN 6.3 g/dL (6.4-8.2)
[2021-09-30] MEDS ORDERED: HEPARIN for SUB-Q USE 5,000 UNIT/ML VIAL. SQ SCH (06:00)
[2021-09-30 07:00] VITALS: BP 130/65
[2021-09-30] MEDS: IV 1/2 NORMAL SALINE 1,000 ML IV SCH (07:40)
[2021-09-30] MEDS: INSULIN LISPRO 300 UNITS/3 ML VIAL. SQ SCH (08:13)
--- NOTE | 2021-09-30 08:57 | CARD ---
MR#: [id number] Date of Study: 09/29/2021 Ordering Physician: SUNITA DURAN, Referring Physician: Rosalio MENENDEZ: Casey Slaughter [facility] APPROVED REPORT EXAM: Two-dimensional and M-mode echocardiogram with Doppler and color Doppler. Other Information Quality : FairHR: 57bpm Rhythm : NSR INDICATION Cardiac Disease: CAD Unstable angina RISK FACTORS Hypertension Obesity Hyperlipidemia Diabetes 2D DIMENSIONS Left Atrium(2D)4.6 (1.6-4.0cm)IVSd1.3 (0.7-1.1cm) Aortic Root(2D)3.4 (2.0-3.7cm)LVDd5.4 (3.9-5.9cm) LVOT Diameter2.3 (1.8-2.4cm)PWd1.2 (0.7-1.1cm) LA Xlnxqf14 (18-58mL)LVDs3.1 (2.5-4.0cm) FS (%) 42.0 %SV100.9 ml LVEF(%)72.6 (>50%) Aortic Valve AoV Peak Juan F.168.1cm/sAoV VTI36.0cm AO Peak GR.11.3mmHgLVOT Peak Juan F.112.2cm/s LVOT VTI 27.04cmAO Mean GR.6mmHg ASHUTOSH (VMAX)2.99ac3ZEO (VTI)3.10cm2 Mitral Valve MV E Weyjszai33.1cm/sMV DECEL [id number] MV A Rnboxjmt45.6cm/sMV JVZ11ld E/A Ratio1.4MVA (PHT)4.23cm2 TDI E/Lateral E'10.6E/Medial E'11.7 Pulmonary Valve PV Peak Hrmtrcxt004.9cm/sPV Peak Grad.5mmHg Tricuspid Valve TR P. Buagombi411ij/sTR Peak Gr.16mmHg Pulmonary Vein S1 Kyndxziu67.9cm/sD2 Lrnkfduk82.4cm/s LEFT VENTRICLE The left ventricle is normal size. There is mild concentric left ventricular hypertrophy. The left ve ntricular systolic function is normal. The ejection fraction is estimated at 55 to 60%. There is norm al LV segmental wall motion. Transmitral Doppler flow pattern is Grade II-pseudonormal filling dynami cs. No left ventricle thrombus noted on this study. There is no ventricular septal defect visualized. There is no left ventricular aneurysm. There is no mass noted in the left ventricle. RIGHT VENTRICLE The right ventricle is normal size. There is normal right ventricular wall thickness. The right ventr icular systolic function is normal. ATRIA The left atrium is moderately dilated. The right atrium size is normal. The interatrial septum is int act with no evidence for an atrial septal defect or patent foramen ovale as noted on 2-D or Doppler i maging. AORTIC VALVE The aortic valve is thickened but opens well. Doppler and Color Flow revealed trace aortic regurgitat ion. There is no significant aortic valvular stenosis. There is no aortic valvular vegetation. MITRAL VALVE The mitral valve is normal in structure and function. There is no evidence of mitral valve prolapse. There is no mitral valve stenosis. Doppler and Color-flow revealed trace mitral regurgitation. TRICUSPID VALVE The tricuspid valve is normal in structure and function. Doppler and Color Flow revealed trace tricus pid regurgitation. There is no tricuspid valve prolapse or vegetation. There is no tricuspid valve st enosis. PULMONIC VALVE The pulmonary valve is normal in structure and function. Doppler and Color Flow revealed no pulmonic valvular regurgitation. There is no pulmonic valvular stenosis. GREAT VESSELS The aortic root is normal in size. The ascending aorta is normal in size. The pulmonary artery is nor mal. The IVC is normal in size and collapses >50% with inspiration. PERICARDIAL EFFUSION There is no pleural effusion. There is no evidence of significant pericardial effusion. Critical Notification Critical Value: No <Conclusion> The left ventricular systolic function is normal. The ejection fraction is estimated at 55 to 60%. There is normal LV segmental wall motion. Trace mitral regurgitation. Trace tricuspid regurgitation. There is no evidence of significant pericardial effusion. Signed by : Sunita Duran, Electronically Approved : 09/30/2021 08:56:15
[2021-09-30] MEDS ORDERED: ASPIRIN ENTERIC COATED 81 MG TABLET.DR. PO SCH (09:00)
[2021-09-30] MEDS ORDERED: NON FORMULARY ITEM (Metoprolol Succinate (Toprol Xl) 1 TAB) PO SCH (09:00)
[2021-09-30] MEDS ORDERED: EMPAGLIFLOZIN 25 MG TABLET. PO SCH (09:00)
[2021-09-30] MEDS ORDERED: LISINOPRIL 10 MG TABLET PO SCH (09:00)
[2021-09-30] MEDS ORDERED: LISINOPRIL 20 MG TABLET PO SCH (09:00)
[2021-09-30] MEDS ORDERED: TAMSULOSIN 0.4 MG CAP.ER.24H. PO SCH (09:00)
[2021-09-30] MEDS ORDERED: METOPROLOL SUCC 24HR ER 25 MG TAB.ER.24H. PO SCH (09:00)
--- NOTE | 2021-09-30 09:34 | PDOC ---
PROGRESS NOTES Date of Service: DATE: 09/30/21 TIME: 09:34 Subjective Subjective Feeling better today. Denied any chest pain or shortness of breath. Objective Objective Vital Signs Date Time Temp Pulse Resp B/P (MAP) Pulse Ox O2 Delivery O2 Flow Rate FiO2 09/30/21 08:14 58 126/60 09/30/21 08:00 Room Air 09/30/21 07:00 98.0 18 95 98.0 09/30/21 03:06 2.0 Intake and Output 09/30/21 07:00 Intake Total 980 ml Output Total 2200 ml Balance -1220 ml Intake Oral 980 ml Output Urine Total 2200 ml # Voids 1 # Bowel Movements 1 Physical Exam Abdomen: Normal bowel sounds, Soft, No tenderness, No hepatosplenomegaly, No masses Heart: Regular rate Extremities: No clubbing, No cyanosis, No edema, Normal pulses, No tenderness/swelling General: Alert, Oriented X3, Cooperative, mild distress HEENT: Atraumatic, PERRLA, EOMI, Mucous membr. moist/pink Lungs: Clear to auscultation, Normal air movement Neuro: Normal gait, Normal speech, Strength at 5/5 X4 ext, Normal tone, Sensation intact, Cranial nerves 3-12 NL, Reflexes 2+ Psych/Mental Status: Mental status NL, Mood NL Skin: No rashes, No breakdown, No significant lesion Assessment Assessment 1. Coronary artery disease with multiple stents placement in the past, most recently in April 2021. Due to his EKG changes, patient underwent cardiac catheterization yesterday that did not show any lesions needing intervention. The previously placed stents in LAD and LCx were widely patent. The diagonal branch showed chronic total occlusion within the stent, described in prior cardiac catheterization according to his family. He is currently chest pain- free. 2D echo showed normal LV systolic function. Continue current secondary prevention measures. 2. Hypotension: Probably secondary to hypovolemia. Improved with intravenous fluids. 3. Hyperlipidemia: Continue statin therapy. 4. Diabetes mellitus type 2 with hyperglycemia, probably contributing to his hypovolemia. Treat per IM. 5. Acute renal insufficiency secondary to hypovolemia. Improved with hydration. Okay for DC from cardiac standpoint. 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 Comment Review of Relevant I have reviewed the following items daquan (where applicable) has been applied. Labs Laboratory Tests Test 09/29/21 17:33 09/29/21 20:31 09/30/21 04:30 Glucose (Fingerstick) 196 mg/dL (70-99) 279 mg/dL (70-99) White Blood Count 4.7 x10^3/uL (4.0-11.0) Red Blood Count 4.27 x10^6/uL (4.30-5.70) Hemoglobin 12.7 g/dL (13.0-17.5) Hematocrit 37.4 % (39.0-53.0) Mean Corpuscular Volume 87 fL (79-100) Mean Corpuscular Hemoglobin 30 pg (25-35) Mean Corpuscular Hemoglobin Concent 34 g/dL (31-37) Red Cell Distribution Width 14.5 % (11.5-14.5) Platelet Count 156 x10^3/uL (140-400) Neutrophils (%) (Auto) 63 % (31-73) Lymphocytes (%) (Auto) 20 % (24-48) Monocytes (%) (Auto) 10 % (0-9) Eosinophils (%) (Auto) 7 % (0-3) Basophils (%) (Auto) 1 % (0-3) Neutrophils # (Auto) 3.0 x10^3/uL (1.8-7.7) Lymphocytes # (Auto) 1.0 x10^3/uL (1.0-4.8) Monocytes # (Auto) 0.4 x10^3/uL (0.0-1.1) Eosinophils # (Auto) 0.3 x10^3/uL (0.0-0.7) Basophils # (Auto) 0.0 x10^3/uL (0.0-0.2) Sodium Level 141 mmol/L (136-145) Potassium Level 4.7 mmol/L (3.5-5.1) Chloride Level 109 mmol/L (98-107) Carbon Dioxide Level 23 mmol/L (21-32) Anion Gap 9 (6-14) Blood Urea Nitrogen 24 mg/dL (8-26) Creatinine 0.9 mg/dL (0.7-1.3) Estimated GFR (Cockcroft-Gault) 82.9 BUN/Creatinine Ratio 27 (6-20) Glucose Level 217 mg/dL (70-99) Calcium Level 8.2 mg/dL (8.5-10.1) Total Bilirubin 0.5 mg/dL (0.2-1.0) Aspartate Amino Transf (AST/SGOT) 21 U/L (15-37) Alanine Aminotransferase (ALT/SGPT) 37 U/L (16-63) Alkaline Phosphatase 82 U/L (46-116) Total Protein 6.3 g/dL (6.4-8.2) Albumin 3.0 g/dL (3.4-5.0) Albumin/Globulin Ratio 0.9 (1.0-1.7) Medications Current Medications Aspirin (Ecotrin) 81 mg DAILY PO Last administered on 09/30/21at 08:14; Start 09/30/21 at 09:00 Atorvastatin Calcium (Lipitor) 40 mg QHS PO ; Start 09/30/21 at 21:00 Bivalirudin (Angiomax) 250 mg STK-MED ONCE IVP ; Start 09/29/21 at 13:33; Stop 09/29/21 at 13:33; Status DC Dextrose (Dextrose 50%-Water Syringe) 12.5 gm PRN Q15MIN PRN IV SEE COMMENTS; Start 09/29/21 at 15:45 Empaglifozin (Jardiance) 25 mg DAILY PO Last administered on 09/30/21at 08:14; Start 09/30/21 at 09:00 Fentanyl Citrate (Fentanyl 2ml Vial) 50 mcg 1X ONCE IV Last administered on 09/29/21at 13:29; Start 09/29/21 at 13:45; Stop 09/29/21 at 13:49; Status DC Fentanyl Citrate (Fentanyl 2ml Vial) 100 mcg STK-MED ONCE .ROUTE ; Start 09/29/21 at 13:13; Stop 09/29/21 at 13:14; Status DC Heparin Sodium (Porcine) (Heparin Sodium) 5,000 unit Q8HRS SQ Last administered on 09/30/21at 05:55; Start 09/30/21 at 06:00 Heparin Sodium/ Sodium Chloride 500 ml @ As Directed STK-MED ONCE .ROUTE ; Start 09/29/21 at 14:08; Stop 09/29/21 at 14:08; Status DC Heparin Sodium/ Sodium Chloride (HEPARIN for ARTERIAL LINE FLUSH) 1,000 unit 1X ONCE IART Last administered on 09/29/21at 13:45; Start 09/29/21 at 13:45; Stop 09/29/21 at 13:49; Status DC Info (CONTRAST GIVEN -- Rx MONITORING) 1 each PRN DAILY PRN MC SEE COMMENTS; Start 09/29/21 at 14:00; Stop 10/01/21 at 13:59 Insulin Glargine (Lantus Syringe) 20 unit QHS SQ Last administered on 09/29/21at 22:59; Start 09/29/21 at 23:00 Insulin Human Lispro (HumaLOG) 0-9 UNITS TIDACHC SQ Last administered on 09/30/21at 08:13; Start 09/29/21 at 16:30 Iohexol (Omnipaque 300 Mg/ml) 50 ml 1X ONCE IART Last administered on 09/29/21at 13:45; Start 09/29/21 at 13:45; Stop 09/29/21 at 13:49; Status DC Iohexol (Omnipaque 300 Mg/ml) 50 ml STK-MED ONCE .ROUTE ; Start 09/29/21 at 14:08; Stop 09/29/21 at 14:08; Status DC Lidocaine HCl (Lidocaine 1% 20ml Vial) 20 ml 1X ONCE INJ Last administered on 09/29/21at 13:45; Start 09/29/21 at 13:45; Stop 09/29/21 at 13:49; Status DC Lisinopril (Prinivil) 5 mg DAILY PO Last administered on 09/30/21at 08:14; Start 09/30/21 at 09:00 Lisinopril (Prinivil) 20 mg DAILY PO ; Start 09/30/21 at 09:00; Stop 09/29/21 at 22:44; Status DC Metoprolol Succinate (Toprol Xl) 12.5 mg DAILY PO ; Start 09/30/21 at 09:00 Midazolam HCl (Versed) 2 mg 1X ONCE IV Last administered on 09/29/21at 13:29; Start 09/29/21 at 13:45; Stop 09/29/21 at 13:49; Status DC Midazolam HCl (Versed) 2 mg STK-MED ONCE .ROUTE ; Start 09/29/21 at 13:13; Stop 09/29/21 at 13:14; Status DC Midazolam HCl (Versed) 2 mg STK-MED ONCE .ROUTE ; Start 09/29/21 at 13:35; Stop 09/29/21 at 13:35; Status DC Non-Formulary Medication (Metoprolol Succinate (Toprol Xl)) 1 tab DAILY PO ; Start 09/30/21 at 09:00; Stop 09/29/21 at 22:44; Status DC Sodium Chloride 1,000 ml @ 60 mls/hr [id number] IV Last administered on 09/29/21at 17:36; Start 09/29/21 at 15:00; Stop 09/30/21 at 09:21; Status DC Tamsulosin HCl (Flomax) 0.4 mg DAILY PO Last administered on 09/30/21at 08:15; Start 09/30/21 at 09:00 Vitals/I & O Vital Sign - Last 24 Hours 09/29/21 09/29/21 09/29/21 09/29/21 13:29 13:58 13:59 14:15 Pulse 58 64 Resp 17 18 18 Pulse Ox 97 96 99 96 O2 Delivery Nasal Cannula Nasal Cannula Nasal Cannula Nasal Cannula O2 Flow Rate 2.0 3.0 3.0 3.0 09/29/21 09/29/21 09/29/21 09/29/21 14:15 14:30 14:30 14:30 Temp 97.6 97.6 Pulse 64 64 66 Resp 18 18 18 B/P (MAP) 104/49 (67) 114/53 (73) Pulse Ox 96 96 97 O2 Delivery Room Air Nasal Cannula Room Air Nasal Cannula O2 Flow Rate 3.0 3.0 09/29/21 09/29/21 09/29/21 09/29/21 14:45 14:45 15:00 15:00 Pulse 64 60 64 61 Resp 18 18 18 18 B/P (MAP) 121/61 (81) 112/78 (89) Pulse Ox 97 97 99 99 O2 Delivery Nasal Cannula Nasal Cannula Nasal Cannula Nasal Cannula O2 Flow Rate 3.0 3.0 3.0 3.0 09/29/21 09/29/21 09/29/21 09/29/21 15:15 15:15 15:30 15:30 Pulse 54 54 58 58 Resp 18 18 18 18 B/P (MAP) 85/41 (56) 104/41 (62) Pulse Ox 97 97 97 97 O2 Delivery Nasal Cannula Nasal Cannula Nasal Cannula Nasal Cannula O2 Flow Rate 3.0 3.0 3.0 3.0 09/29/21 09/29/21 09/29/21 09/29/21 16:00 16:00 16:00 16:30 Pulse 60 60 58 Resp 18 18 18 B/P (MAP) 88/41 (57) Pulse Ox 99 99 99 O2 Delivery Nasal Cannula Nasal Cannula Nasal Cannula Nasal Cannula O2 Flow Rate 3.0 3.0 3.0 3.0 09/29/21 09/29/21 09/29/21 09/29/21 17:00 17:30 18:00 19:50 Temp 98.5 98.5 Pulse 54 56 58 58 Resp 18 17 16 18 B/P (MAP) 134/57 (82) 139/51 (80) 110/43 (65) Pulse Ox 100 96 94 96 O2 Delivery Nasal Cannula Room Air Nasal Cannula Room Air O2 Flow Rate 3.0 09/29/21 09/29/21 09/29/21 09/29/21 20:00 20:40 21:49 22:40 Pulse 59 57 63 Resp 18 18 18 B/P (MAP) 136/56 (82) 125/55 (78) 149/61 (90) Pulse Ox 94 97 99 O2 Delivery Room Air Room Air Nasal Cannula Nasal Cannula O2 Flow Rate 2.0 2.0 09/29/21 09/30/21 09/30/21 09/30/21 23:43 03:06 07:00 08:00 Temp 98.3 98.0 98.3 98.0 Pulse 64 54 56 Resp 18 18 18 B/P (MAP) 118/56 (76) 115/51 (72) 130/65 (86) Pulse Ox 99 99 95 O2 Delivery Nasal Cannula Nasal Cannula Room Air Room Air O2 Flow Rate 2.0 2.0 09/30/21 08:14 Pulse 58 B/P (MAP) 126/60 Intake and Output 09/29/21 09/29/21 09/30/21 15:00 23:00 07:00 Intake Total 0 ml 620 ml 360 ml Output Total 1250 ml 950 ml Balance 0 ml -630 ml -590 ml SUNITA FRANCO MD September 30, 2021 09:34
[2021-09-30 11:00] VITALS: BP 139/46
[2021-09-30] MEDS ORDERED: METO-239 PO (11:11)
[2021-09-30] MEDS ORDERED: TICA90TA PO (11:11)
--- NOTE | 2021-09-30 11:12 | DISCH ---
DISCHARGE INSTRUCTIONS Condition on Discharge Condition on Discharge: Stable Activity After Discharge Activity Instructions for Disc: Activity as tolerated Diet after Discharge Diet after Discharge: Cardiac, Diabetic No Calorie Level Follow-Up Follow up with: PCP within 2 weeks of discharge Follow Up With: Cardiology as needed or as scheduled NIKITA GOETZ MD September 30, 2021 11:12
[2021-09-30] MEDS ORDERED: ATORVASTATIN CALCIUM 40 MG TABLET. PO SCH (21:00)
--- NOTE | 2021-10-03 13:08 | PDOC3 ---
[facility]-Discharge Summary Date of Admission: Date of Admission: September 29, 2021 Date of Discharge: Date of Discharge: September 30, 2021 Discharge Diagnosis: Discharge Diagnosis: Hypotension - possibly medication overdosing, hold metoprol, cut down from 50 to 12.5 if HR allows in 24 hours Bradycardia - hold toprol for today Abnormal EKG - with above symptoms, treated as STEMI - no amenable coronary les ions Coronary artery disease s/p multiple PCI/stents placement in 2010, 2017 and most recently in April 2021 at [facility]. Carotid artery disease s/p bilateral carotid endarterectomies Blurred vision - likely related to hypotension H/o Hypertension - hold meds Hyperlipidemia - statin Diabetes mellitus type 2 -Jardiance, Lantus and lispro. GERD - ppi Nephrolithiasis BPH - on flomax Consults: Consults: Per cardiology: 1. Coronary artery disease with multiple stents placement in the past, most recently in April 2021. Due to his EKG changes, patient underwent cardiac catheterization yesterday that did not show any lesions needing intervention. The previously placed stents in LAD and LCx were widely patent. The diagonal branch showed chronic total occlusion within the stent, described in prior cardiac catheterization according to his family. He is currently chest pain- free. 2D echo showed normal LV systolic function. Continue current secondary prevention measures. 2. Hypotension: Probably secondary to hypovolemia. Improved with intravenous fluids. 3. Hyperlipidemia: Continue statin therapy. 4. Diabetes mellitus type 2 with hyperglycemia, probably contributing to his hypovolemia. Treat per IM. 5. Acute renal insufficiency secondary to hypovolemia. Improved with hydration. Okay for DC from cardiac standpoint. 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 Hospital Course: Hospital Course: 71 yo male w/ PMHx coronary artery disease s/p multiple PCI/stents placement (he says 4 stents 2010 and 4 stents 2018), DM2, HLD, HTN, carotid disease s/p jamie ateral carotid endarterectomy who presented to [facility] ED with dizziness, lightheadedness, blurred vision, diaphoresis and generalized weakness. Blood pressure 65/24 pulse 67 respirations 16 pulse oximetry 96% on room air temperature 98 F Labs reveal WBC 6.2, Hb 12.8, platelets 184, INR 1, PTT 21, NA 138, K5, BUN 32, CR 1.6, glucose 251, calcium 9, phosphorus 3.2, magnesium 1.1 bilirubin 0.7, AST 23, ALT 24, alkaline phosphatase 74.5, NT proBNP 423, troponin high-sensitivity is [address] head abnormalities. Chest radiograph no acute abnormalities EKG with slight ST elevations in inferior leads with T wave inversion in aVL. Given IVF bolus and started on dopamine and with concern for early STEMI was transferred to [place] for urgent cardiac evaluation and catheterization. 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 The diagonal branch of LAD showed chronic total occlusion within the stent. No interventions performed. Seen in ICU post cardiac cath and he tells me this morning awoke with a slight headache. He says he went to [place] for cardiac rehab and came outside When he went outside he noticed everything was very bright and blurry. Patient states he felt unwell while driving, went to have breakfast but did not get any better and his checked his blood pressure and found it to be 50/30, so came to ED in the first place. He then relates above prior cardiac history and notes April 2021 while being evaluated for consideration for recommended CABG he was found with 90 occlusion of his right carotid artery and >70% occlusion of left with prior TIA and subsequently underwent bilateral carotid endarterectomies, he has been going to cardiac rehab since and notes that he frequently gets lightheaded after rehab and has light sensitivity. Still hypotensive 85/41 with HR 57bpm in ICU. By day of discharge patient was clinically stable and chest pain-free. See cardiology recommendations above. Rest of hospital course was uneventful. Disposition: Disposition/Orders: D/C to Home Activity: Activity: Resume previous activity Diet: Diet: Cardiac Medications: Home Meds Active Scripts Ticagrelor (BRILINTA) 90 Mg Tablet, 90 MG PO DAILY for stent for 30 Days, #30 TAB Prov:NIKITA GOETZ MD 09/30/21 Metoprolol Succinate (METOPROLOL SUCCINATE ( XL )) 25 Mg Tab.er.24h, 12.5 MG PO DAILY for blood pressure for 90 Days, #45 TAB.SR 2 Refills Prov:NIKITA GOETZ MD 09/30/21 Tamsulosin Hcl (FLOMAX) 0.4 Mg Cap.er.24h, 1 CAP PO DAILY, #30 CAP 11 Refills Prov:FIDENCIO BLANCAS MD 04/02/17 Lisinopril (LISINOPRIL) 20 Mg Tablet, 1 TAB PO DAILY, #30 TAB 5 Refills Prov:FIDENCIO BLANCAS MD 04/02/17 Insulin Detemir (LEVEMIR) 100 Unit/1 Ml Vial, 30 UNIT SQ QHS PRN for scheduled, #10 VIAL 5 Refills Prov:FIDENCIO BLANCAS MD 04/02/17 Glimepiride (GLIMEPIRIDE) 4 Mg Tablet, 1 TAB PO BID, #30 TAB 5 Refills Prov:FIDENCIO BLANCAS MD 04/02/17 Atorvastatin Calcium (LIPITOR) 40 Mg Tablet, 1 TAB PO QHS, #90 TAB 1 Refill Prov:FIDENCIO BLANCAS MD 04/02/17 Aspirin (ASPIRIN EC) 81 Mg Tablet.dr, 1 TAB PO DAILY, #30 TAB 3 Refills Prov:FIDENCIO BLANCAS MD 04/02/17 Reported Medications Canagliflozin (INVOKANA) 300 Mg Tablet, 300 MG PO DAILY, TAB 03/31/17 Discontinued Scripts Metoprolol Succinate (TOPROL XL) 50 Mg Tab.er.24h, 1 TAB PO DAILY, #30 TAB 5 Refills Prov:FIDENCIO BLANCAS MD 04/02/17 Scheduled Aspirin (Aspirin Ec), 1 TAB PO DAILY Atorvastatin Calcium (Lipitor), 1 TAB PO QHS Canagliflozin (Invokana), 300 MG PO DAILY, (Reported) Glimepiride (Glimepiride), 1 TAB PO BID Lisinopril (Lisinopril), 1 TAB PO DAILY Metoprolol Succinate (Metoprolol Succinate ( Xl )), 12.5 MG PO DAILY Tamsulosin Hcl (Flomax), 1 CAP PO DAILY Ticagrelor (Brilinta), 90 MG PO DAILY Scheduled PRN Insulin Detemir (Levemir), 30 UNIT SQ QHS PRN for scheduled Discontinued Medications Metoprolol Succinate (Toprol Xl), 1 TAB PO DAILY Total Time: Total Time: Total time spent was 36 minutes in preparing scripts, discharge planning with SWI and RN and preparing this discharge summary Patient seen and examined on day of discharge. No acute abnormal findings. Justicifation of Admission Dx: Justifications for Admission: Justification of Admission Dx: Yes MT: Acute STEMI NIKITA GOETZ MD October 03, 2021 13:08
== END 2021-09-30 12:30 | disposition home or self-care (01) | DRG 287 ==
LOC: CCL 13:25 → 1 WEST ICU 13:33
PROVIDERS: ADMIT Internal Medicine; ATTEND Internal Medicine
PROC: 4A023N7 Measurement of Cardiac Sampling and Pressure, Left Heart, Percutaneous Approach (ICD-10-PCS; principal; 2021-09-29)
PROC: B2111ZZ Fluoroscopy of Multiple Coronary Arteries using Low Osmolar Contrast (ICD-10-PCS; 2021-09-29)
DX: I25.10 Atherosclerotic heart disease of native coronary artery without angina pectoris (principal); E11.65 Type 2 diabetes mellitus with hyperglycemia; E78.5 Hyperlipidemia, unspecified; E86.1 Hypovolemia; I11.0 Hypertensive heart disease with heart failure; I25.2 Old myocardial infarction; I25.82 Chronic total occlusion of coronary artery; I50.9 Heart failure, unspecified; K21.9 Gastro-esophageal reflux disease without esophagitis; N20.0 Calculus of kidney; N40.0 Benign prostatic hyperplasia without lower urinary tract symptoms; Z82.49 Family history of ischemic heart disease and other diseases of the circulatory system; Z86.73 Personal history of transient ischemic attack (TIA), and cerebral infarction without residual deficits; Z87.442 Personal history of urinary calculi; Z95.5 Presence of coronary angioplasty implant and graft; I95.9 Hypotension, unspecified
CPT/HCPCS: 93458; G0269; 36415; 80053; 82962; 85025; 93306; 99152; 99153; C1760; C1894; J1644; J1815; J2250; J3010; J3490; Q9967; C8929; G0378